=== PATIENT | female | born 1940 | race Caucasian/White ===

== ENCOUNTER 2018-06-15 11:25 | Emergency (ER) | payer MEDICARE, BC ==
[~2018-06-15] VITALS: Ht 165.1 cm; Wt 72.6 kg
[2018-06-15] MEDS ORDERED: ONDANSETRON 4 MG TAB.RAPDIS PO ONE (12:00)
[2018-06-15] MEDS ORDERED: HYDROCODONE/APAP 5/325MG 1 EACH TABLET PO ONE (12:00)
[2018-06-15] MEDS ORDERED: HYDROCODONE/APAP 5/325MG 1 EACH TABLET ONE (12:07)
[2018-06-15] MEDS ORDERED: ONDANSETRON 4 MG TAB.RAPDIS ONE (12:07)
--- NOTE | 2018-06-15 12:52 | NUR ---
C/O NECK PAIN X 6 DAYS AGO NO INJURY ALSO C/O ALYSHA EAR PAIN AND HEADACHE. ALERT AND ORIENTED X 4, VERBALLY RESPONSIVE AND ABLE TO MAKE NEEDS KNOWN. ON ROOM AIR, BREATHING EVENLY, AND UNLABORED. KEPT COMFROTABLE, WILL CONTINUE TO MONITOR ACCORDINGLY.
[2018-06-15 13:56] VITALS: BP 144/71
== END 2018-06-15 13:57 | disposition home or self-care (01) ==
LOC: ER 11:27
DX: M62.838 Other muscle spasm (principal); M79.7 Fibromyalgia; I10 Essential (primary) hypertension; E11.9 Type 2 diabetes mellitus without complications; E03.9 Hypothyroidism, unspecified; Z88.0 Allergy status to penicillin; Z88.6 Allergy status to analgesic agent; Z88.5 Allergy status to narcotic agent
CPT/HCPCS: 72125-TC; Q0162